=== PATIENT | female | born 1990 | race Caucasian/White ===

== ENCOUNTER 2021-07-05 07:19 | Emergency (ER) | payer OTHER ==
[~2021-07-05] VITALS: Ht 162.6 cm; Wt 117.9 kg
--- NOTE | 2021-07-05 07:19 | NUR ---
PT BIB [facility], PRE-BOOK. TAKEN TO CHAIR
[2021-07-05 07:23] VITALS: BP 119/69
--- NOTE | 2021-07-05 07:49 | NUR ---
PATIENT BIB [facility] POLICE DEPT. PATIENT EXAMINED BY DR. MCCULLOUGH. PATIENT MEDICALLY CLEARED AND RELEASED IN CUSTODY IN STABLE CONDITION. ORIGINAL PRE-BOOK FORM GIVEN TO OFFICER ROBERTO.
== END 2021-07-05 07:49 ==
LOC: MED 07:19
DX: R51.9 Headache, unspecified (principal); Z02.89 Encounter for other administrative examinations; Z88.0 Allergy status to penicillin; Y04.2XXA Assault by strike against or bumped into by another person, initial encounter; Y93.89 Activity, other specified; Y92.89 Other specified places as the place of occurrence of the external cause; Y99.8 Other external cause status
CPT/HCPCS: 99283